=== PATIENT | male | born 1970 | race Caucasian/White ===

== ENCOUNTER 2023-05-13 07:23 | Day surgery (SDC) | payer SELFPAY ==
[2023-05-13 08:03] LABS: #Basophils 0.1 thou/uL (0.0-0.2); #Eosinphils 0.2 thou/uL (0.0-0.7); #Monocytes 1.1 thou/uL (0.11-0.59); #Neutrophils 16.8 thou/uL (1.40-6.50); %Basophils 0.3 % (0.0-1.0); %Lymphocytes 1.7 % (21.0-51.0); %Monocytes 5.9 % (0.0-10.0); %Neutrophils 90.6 % (42.0-75.0); Hematocrit 48.1 % (42.0-52.0); Hemoglobin 15.4 g/dL (14.0-18.0); Mean Corpuscular Hemoglobin 29.7 pg (27.0-31.0); Mean Corpuscular Volume 92.9 fl (78.0-98.0); Mean Platelet Volume 10.9 fL (7.4-10.4); Platelet Count 266 10x3/uL (130-400); RBC Distribution Width 13.1 % (11.5-14.5); Red Blood Cell (RBC) Count 5.18 mill/uL (4.70-6.10); White Blood Cell (WBC) Count 18.6 10x3/uL (4.8-10.8)
[2023-05-13 08:30] LABS: ALT (SGPT) 455 U/L (8-55); AST (SGOT) 504 U/L (5-34); Albumin 3.8 g/dL (3.5-5.0); Alkaline Phosphatase 116 U/L (40-110); Anion Gap 15 mmol/L (10-20); BUN (Urea Nitrogen) 11 mg/dL (8.4-25.7); Bilirubin, Total 2.9 mg/dL (0.2-1.2); Calc. Creatinine Clearance 0 mL/min (70-130); Calcium 8.4 mg/dL (7.8-10.44); Carbon Dioxide 25 mmol/L (22-29); Chloride 103 mmol/L (98-107); Estimated GFR 81; Globulin 2.6 g/dL (2.4-3.5); Glucose 154 mg/dL (70-105); Potassium 4.3 mmol/L (3.5-5.1); Protein, Total 6.4 g/dL (6.0-8.3); Sodium 139 mmol/L (136-145)
[2023-05-13 08:36] LABS: INR-International Normal Ratio 1.1; PTT 28.3 sec (22.9-36.1); Prothrombin Time 14.1 sec (12.0-14.7)
[2023-05-13] MEDS ORDERED: Piperacillin/Tazobactam 4.5 GM VIAL ONE (08:56)
[2023-05-13] MEDS ORDERED: Bupivacaine PF 0.5% 30 ML VIAL ONE (11:49)
[2023-05-13] MEDS ORDERED: EPINEPHrine 1 MG/ML AMP ONE (11:49)
[2023-05-13] MEDS ORDERED: Glucagon 1 MG/ML KIT ONE (11:56)
[2023-05-13] MEDS ORDERED: Iopamidol 15 ML ONE (11:56)
[2023-05-13] MEDS ORDERED: fentaNYL 50 mcg/mL 1 mL Vial ONE ×2 (11:57→14:18)
[2023-05-13] MEDS ORDERED: fentaNYL PF 100 MCG/2 ML SYRINGE ONE (11:57)
[2023-05-13] MEDS ORDERED: SUGAMMADEX SODIUM 200 MG/2 ML VIAL ONE (11:58)
[2023-05-13] MEDS ORDERED: Ketorolac Tromethamine 30 MG/ML VIAL ONE (12:07)
[2023-05-13] MEDS ORDERED: Rocuronium Bromide 10 MG/ML (10ML VIAL) ONE (12:46)
[2023-05-13] MEDS ORDERED: Lidocaine 1% PF 5 ML VIAL ONE (12:46)
[2023-05-13] MEDS ORDERED: Succinylcholine 200 MG/10 ml SYRINGE FS ONE (12:46)
[2023-05-13] MEDS ORDERED: PROPOFOL 200 MG/20 ML VIAL ONE (12:46)
[2023-05-13] MEDS ORDERED: HYDROcodone/Acetaminophen 5/325 mg Tablet ONE (15:40)
== END 2023-05-13 16:23 | disposition home or self-care (01) ==
LOC: ERS 07:23 → SDC 10:41
PROVIDERS: ATTEND Specialist
PROC: BF53200 Other Imaging of Gallbladder and Bile Ducts using Fluorescing Agent, Indocyanine Green Dye, Intraoperative (ICD-10-PCS; principal; 2023-05-13)
PROC: 0FT44ZZ Resection of Gallbladder, Percutaneous Endoscopic Approach (ICD-10-PCS; principal; 2023-05-13)
DX: K80.12 Calculus of gallbladder with acute and chronic cholecystitis without obstruction (principal); E66.01 Morbid (severe) obesity due to excess calories
CPT/HCPCS: 36415; 47532; 76705; 83605; 85610; 85730; 86850; 86900; 86901; 88304; 93005; 96365; C1889; J0171; J1611; J1885; J2543; J2704; J3010; Q9967; S0020